=== PATIENT | male | born 2000 | race Caucasian/White ===

== ENCOUNTER 2022-06-19 06:19 | Day surgery (SDC) | payer OTHER ==
[~2022-06-19] VITALS: Ht 177.8 cm; Wt 93.9 kg
[2022-06-19] MEDS ORDERED: NEURONTIN300 MG/CAP (08:02)
[2022-06-19] MEDS ORDERED: PROTONIX 40MG T40 MG PO (08:02)
[2022-06-19 09:33] VITALS: BP 130/73; PULSE 78; TEMP 97.3
[2022-06-19 12:25] VITALS: BP 119/62; PULSE 77; TEMP 97.6
[2022-06-19 12:30] VITALS: BP 113/69; PULSE 82
[2022-06-19 12:40] VITALS: BP 118/78; PULSE 78
--- NOTE | 2022-06-19 13:00 | NUR ---
1225- PATIENT RETURNS TO [facility] [place] [facility] VIA CART. PT AWAKE AND ALERT. RESPIRATIONS UNLABORED. AMBULATED TO RECLINER CHAIR WITH 2:1 SBA. PT DENIES NAUSEA OR ABDOMINAL PAIN. HOOKED UP TO MONITOR AND VS OBTAINED. CALL LIGHT AT SIDE. 1235- DR. COTO IN ROOM SPEAKING WITH PATIENT. 1236- PATIENT TOLERATING JUICE AND MUFFIN WITHOUT NAUSEA OR DIFFICULTY SWALLOWING. 1254- D/C INSTRUCTIONS REVIEWED WITH PATIENT. PT VERBALIZED UNDERSTANDING AND A COPY OF INSTRUCTIONS PROVIDED IN D/C FOLDER. 1252- PATIENT DRESSES SELF. 1300- PATIENT DISCHARGED FROM UNIT VIA W/C TO A PERSONAL VEHICLE. PT LEFT HOSPITAL IN STABLE CONDITION.
[2022-06-19 13:19] VITALS: BP 119/62; PULSE 86
== END 2022-06-19 13:00 | disposition home or self-care (01) ==
LOC: SDCO 06:19
DX: K62.89 Other specified diseases of anus and rectum (principal); K21.00 Gastro-esophageal reflux disease with esophagitis, without bleeding; K44.9 Diaphragmatic hernia without obstruction or gangrene; K92.1 Melena; K92.0 Hematemesis; R19.4 Change in bowel habit; R19.7 Diarrhea, unspecified; Z79.899 Other long term (current) drug therapy
CPT/HCPCS: J2704

== ENCOUNTER 2022-12-15 10:18 | Day surgery (SDC) | payer OTHER ==
[2022-12-15] VITALS (11 sets, daily range): BP systolic 105–139; BP diastolic 51–91; PULSE 17–109; TEMP 78–98.4
[~2022-12-15] VITALS: Ht 177.8 cm; Wt 98.0 kg
[~2022-12-15 10:18] MED LIST: NEURONTIN300 MG/CAP; PROTONIX 40MG T40 MG PO
--- NOTE | 2022-12-15 17:52 | NUR ---
PT TO ROOM 323 PER BED WITH REPORT FROM KYLEIGH JACKSON PACU @1600. PT NAUSEAS, IV TO LEFT WRIST. LAP SITES X6 CDI SANTIAGO. PT A/O X4, IV PHENERGAN GIVEN PER ORDERS. PT RESTING AT THIS TIME. LUNGS CTA, BOWEL SOUNDS HYPO. PT DENIES NEEDS. CAREPLAN IN PLACE AND CONTINUE TO FOLLOW.
--- NOTE | 2022-12-15 20:00 | NUR ---
PATIENT IS A&O. VSS. C/O INTERMITTENT NAUSEA, NO EMESIS. PATIENT GIVEN IV PHENERGAN BY DAY SHIFT AND REPORTS HE IS FEELING BETTER. GAVE PRN TYLENOL FOR MILD POST-OP DISCOMFORT. ABD LAP SITES WELL APPROXIMATED. ABD IS DISTENDED, SOFT AND WITH BOWL SOUNDS. NO REPORTS OF FLATUS OR BM YET. IV FLUIDS INFUSING VIA PUMP INTO LEFT WRIST IV. CLEARS AT BEDSIDE, LITTLE ORAL INTAKE AT THIS TIME DUE TO INTERMITTENT NAUSEA. HEAD TO TOE ASSESSMENT COMLETE. SCD'S TO BLE. NO OTHER NEEDS AT THIS TIME. CALL LIGHT IN REACH.
--- NOTE | 2022-12-15 21:35 | NUR ---
PATIENT CALLED OUT C/O NAUSEA, NO EMESIS. GAVE PRN IV ZOFRAN AND APPLIED COOL CLOTH TO HEAD. ROOM TEMP TURNED DOWN. PATIENT RESTING UP IN BED WITH CALL LIGHT IN REACH AND EMESIS BASIN AT BEDSIDE.
[2022-12-16] VITALS (7 sets, daily range): BP systolic 102–121; BP diastolic 43–61; PULSE 66–81; TEMP 98–98.8
[2022-12-16 06:23] LABS: BASO % 0.5 % (0.0-2.0); EOS % 0.5 % (0.0-4.0); GRAN # 5.8 K/mm3 (1.4-6.5); GRAN % 67.9 % (42.2-75.2); HEMOGLOBIN 13.8 g/dl (13.5-18.0); LYMPH # 1.9 K/mm3 (1.2-3.4); LYMPH % 22.5 % (20.0-51.0); MEAN CELL VOLUME 89 fl (80.0-100.0); MEAN CORPUSCULAR HEMOGLOBIN 32 pg (27-31); MEAN CORPUSCULAR HGB CONC 36 g/dl (33.0-37.0); MEAN PLATELET VOLUME 10.5 fl (7.4-10.4); MONO # 0.7 K/mm3 (0.1-0.6); MONO % 8.2 % (1.7-9.3); RED BLOOD COUNT 4.29 M/mm3 (4.20-5.60); REDCELL DISTRIBUTION WIDTH-CV 11.9 % (11.5-14.5)
[2022-12-16 06:29] LABS: CALCIUM 8.6 mg/dL (8.4-10.2); CREATININE, serum 1.14 mg/dL (0.72-1.25); MAGNESIUM 1.8 mg/dL (1.6-2.6); PHOSPHOROUS 4.5 mg/dL (2.3-4.7); POTASSIUM 3.5 mmol/L (3.5-4.5)
[2022-12-16 06:56] LABS: PLATELET COUNT 267 K/mm3 (130-400)
--- NOTE | 2022-12-16 07:08 | NUR ---
Shift report received from MANUEL Noyola.
--- NOTE | 2022-12-16 07:50 | NUR ---
Patient awake in bed alert and oriented. IVF infusing at Left wrist without diffculty. ABD 6 lap site well approximated, incision dry and intact. Patient c/o of mild discomfort at the incision site and rated pain level 5/10. Patient reports of swollen scrotum and noted symptom last night. Patient denies of n/v and not passing gas as of yet. Patient reminded of ERAS protocol and encourage to walk today. Patient verbalized understanding. Call giron in reach.
--- NOTE | 2022-12-16 09:12 | NUR ---
Assisted patient to ambulate in the hallway. Patient tolerated well and denies of any issues.
--- NOTE | 2022-12-16 10:47 | NUR ---
Initial visit; Patient a very nice young man from [facility]. Following thanking Jorge for his Service to us and our country, offered God's blessings. Patient thanked for stopping and asked if she would keep him in her prayers.
--- NOTE | 2022-12-16 11:59 | NUR ---
Avionics System Engineer met with Patient at bedside to conduct Care Managment Assessment and discuss discharge planning. 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, [place] Patient revieces healthcare, insurance, and medications on [address]. Patient reports independency with ADL/IADLs prior to admission and states to intend to discharge home when medically cleared. Patient states to not have DPOAHC and declines forms at this time. Patient states to have transportation home when discharged. Discharge Plan: Home
[2022-12-16] MEDS ORDERED: CELEBREX 200MG200 MG PO (12:22)
[2022-12-16] MEDS ORDERED: TYLENOL 500MG500 MG PO (12:23)
[2022-12-16] MEDS ORDERED: ROXICODONE 55 MG/TAB PO (12:23)
[2022-12-16] MEDS ORDERED: ZOFRAN ODT4 MG PO (12:25)
--- NOTE | 2022-12-16 13:27 | NUR ---
Discharge instruction given patient verbalized understanding. 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 Roxicodone administered for pain level of 4/10.
== END 2022-12-16 14:00 | disposition home or self-care (01) ==
LOC: SDCO 10:18 → SURG 16:00 → SDCO 12-16 14:00 → SURG 12-16 14:00
PROVIDERS: Surgery
DX: K44.9 Diaphragmatic hernia without obstruction or gangrene (principal); K21.9 Gastro-esophageal reflux disease without esophagitis; Z79.899 Other long term (current) drug therapy
CPT/HCPCS: OP; J0690; J1170; J1920; J2405; J2550; J2704; J3010; J7120